=== PATIENT | female | born 1965 | race Caucasian/White ===

== ENCOUNTER → 2022-09-18 14:43 | Outpatient (CLI) | payer OTHER, SELFPAY ==
--- NOTE | ~2022-09-18 | MM_ITS ---
EXAMINATION: MM screening simran BI w mathew HISTORY: Screening TECHNIQUE: Craniocaudal and mediolateral oblique 3-D tomosynthesis images were obtained and synthetic 2-D images were generated. CAD analysis was submitted and interpreted. COMPARISON: No prior mammogram is available for comparison at this institution. BREAST PARENCHYMAL COMPOSITION: There are scattered areas of fibroglandular density. FINDINGS: There is a subtle asymmetry in the upper outer quadrant of the right breast. There are no s uspicious masses, calcifications or architectural distortion in the left breast. IMPRESSION: 1. Focal right breast asymmetry, upper outer quadrant of the right breast. 2. Recommend comparison to previous outside mammograms. BI-RADS Category 0: Incomplete: Needs additional imaging evaluation. Reviewed, dictated and finalized at location A. L INSPECTOR
== END ==
DX: Z12.31 Encounter for screening mammogram for malignant neoplasm of breast (principal); R92.8 Other abnormal and inconclusive findings on diagnostic imaging of breast
CPT/HCPCS: 77063; 77067